=== PATIENT | male | born 1995 | race Caucasian/White ===

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

== ENCOUNTER → 2017-04-16 | Outpatient (CLI) | payer OTHER | LOC: BMCIMAGING 11:01 | PROVIDERS: ATTEND Family Medicine | DX: R62.50 Unspecified lack of expected normal physiological development in childhood (principal) ==